=== PATIENT | female | born 2000 | race Caucasian/White ===

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

== ENCOUNTER 2022-03-16 23:21 | Emergency (ER) | payer BC, MEDICAID ==
[~2022-03-16] VITALS: Ht 168 cm; Wt 82.0 kg
[~2022-03-16 23:21] MED LIST changes: +SERT-412 PO; -SERT25TA5 PO
[2022-03-16] MEDS ORDERED: diphenhydrAMINE 50 MG/ML INJ (BENADRYL) IVP ONE (23:30)
[2022-03-16] MEDS ORDERED: methylPREDNISolone 125 MG (Solu-MEDROL) VIAL IVP ONE (23:30)
--- NOTE | 2022-03-16 23:31 | ED EENT ---
History of Present Illness General Chief Complaint: Oral/Throat Problems Stated Complaint: TONGUE SWOLLEN Source: patient Exam Limitations: no limitations History of Present Illness Date Seen by Provider: Mar 16, 2022 Time Seen by Provider: 23:26 Initial Comments 22-year-old female who is otherwise healthy presents to the emergency department today for perceived tongue swelling. Symptoms started this morning. Stated symptoms include sore throat. She also notes a change in her voice. No fevers or chills. She was fine prior to the onset of her current symptoms. She has n ot tried anything for symptoms. She is tolerating her saliva, liquids without difficulty. She has not tried to eat. No new medications or exposures. Allergies and Home Medications Allergies Coded Allergies: Penicillins (Unverified Allergy, Unknown, 05/11/15) Patient Home Medication List Home Medication List Reviewed: Yes Discontinued Medications Hydroxyzine Pamoate (Hydroxyzine Pamoate) 50 Mg Capsule, (Reported) Discontinued Reason: No Longer Taking Entered as Reported by: LYNDSEY HICKEY on 02/19/18335 Last Action: Discontinued Lurasidone HCl (Latuda) 20 Mg Tablet, (Reported) Discontinued Reason: No Longer Taking Entered as Reported by: LYNDSEY HICKEY on 02/19/18335 Last Action: Discontinued Naltrexone HCl (Naltrexone HCl) 50 Mg Tablet, (Reported) Discontinued Reason: No Longer Taking Entered as Reported by: LYNDSEY HICKEY on 02/19/18335 Last Action: Discontinued Nifedipine (Nifedipine) 10 Mg Capsule, (Reported) Discontinued Reason: No Longer Taking Entered as Reported by: LYNDSEY HICKEY on 02/19/18335 Last Action: Discontinued Oxcarbazepine (Oxcarbazepine) 150 Mg Tablet, (Reported) Discontinued Reason: No Longer Taking Entered as Reported by: LYNDSEY HICKEY on 02/19/18335 Last Action: Discontinued Review of Systems Review of Systems Constitutional: no symptoms reported Eyes: No Symptoms Reported Ears: No Symptoms Reported Nose: no symptoms reported Mouth: swelling Throat: pain, muffled Respiratory: no symptoms reported Cardiovascular: no symptoms reported Gastrointestinal: no symptoms reported Musculoskeletal: no symptoms reported Skin: no symptoms reported Neurological: No Symptoms Reported Hematologic/Lymphatic: No Symptoms Reported Immunological/Allergic: no symptoms reported Past Jjupbng-Kmnmgx-Tzoyno Hx Patient Social History Tobacco Use?: No Use of E-Cig and/or Vaping dev: No Substance use?: No Alcohol Use?: No Immunizations Up To Date Tetanus Booster (TDap): Less than 5yrs PED Vaccines UTD: Yes Seasonal Allergies Seasonal Allergies: No Past Medical History Surgeries: Yes Adenoidectomy, Tonsillectomy Respiratory: Yes Asthma Cardiac: No Neurological: No Reproductive Disorders: No Female Reproductive Disorders: Denies Genitourinary: No Gastrointestinal: No Musculoskeletal: No Endocrine: No HEENT: No Cancer: No Psychosocial: Yes ("CUTTER" ) Anxiety, Suicide Attempts, Bipolar, Schizophrenia, Depression Integumentary: Yes Eczema Blood Disorders: No Family Medical History Reviewed Nursing Family Hx Cardiovascular disease GPA, Onset:Unknown Diabetes mellitus 19 FATHER, Onset:Unknown GPA, Onset:Unknown Headache disorder 19 MOTHER, Onset:Unknown Hypertension 19 FATHER, Onset:Unknown No Pertinent Family Hx, Psychiatric Problems Physical Exam Vital Signs Vital Signs - First Documented 03/16/22 23:26 Temp 37.7 Pulse 110 Resp 16 B/P (MAP) 149/98 (115) Pulse Ox 99 O2 Delivery Room Air Height, Weight, BMI Height: 5'6.00" Weight: 180lbs. 0oz. 81.871419sl; 28.12 BMI Method:Stated General Appearance: WD/WN, no apparent distress Eyes: bilateral eye normal inspection, bilateral eye PERRL, bilateral eye EOMI Ears: bilateral ear auricle normal, bilateral ear canal normal, bilateral ear TM normal Nose: normal inspection Mouth/Throat: normal mouth inspection, pharynx normal, voice changes (Hot potato voice), other (Uvula is midline. There is no erythema. No lingular or palatal swelling.) Neck: non-tender, full range of motion, supple, normal inspection Cardiovascular: regular rate, rhythm, no edema, no gallop, no JVD, no murmur Respiratory: chest non-tender, lungs clear, normal breath sounds, no respiratory distress, no accessory muscle use Neurologic/Psychiatric: alert, normal mood/affect, oriented x 3 Skin: normal color, warm/dry Procedures/Interventions Suture Size: 4-0 Progress/Results/Core Measures Results/Orders Lab Results Laboratory Tests Test 03/16/22 23:30 03/16/22 23:39 Range/Units White Blood Count 8.2 4.3-11.0 10^3/uL Red Blood Count 4.87 3.80-5.11 10^6/uL Hemoglobin 13.8 11.5-16.0 g/dL Hematocrit 43 35-52 % Mean Corpuscular Volume 88 80-99 fL Mean Corpuscular Hemoglobin 28 25-34 pg Mean Corpuscular Hemoglobin Concent 32 32-36 g/dL Red Cell Distribution Width 12.5 10.0-14.5 % Platelet Count 369 130-400 10^3/uL Mean Platelet Volume 11.0 9.0-12.2 fL Immature Granulocyte % (Auto) 0 % Neutrophils (%) (Auto) 65 42-75 % Lymphocytes (%) (Auto) 24 12-44 % Monocytes (%) (Auto) 10 0-12 % Eosinophils (%) (Auto) 1 0-10 % Basophils (%) (Auto) 1 0-10 % Neutrophils # (Auto) 5.3 1.8-7.8 10^3/uL Lymphocytes # (Auto) 1.9 1.0-4.0 10^3/uL Monocytes # (Auto) 0.8 0.0-1.0 10^3/uL Eosinophils # (Auto) 0.0 0.0-0.3 10^3/uL Basophils # (Auto) 0.1 0.0-0.1 10^3/uL Immature Granulocyte # (Auto) 0.0 0.0-0.1 10^3/uL Sodium Level 141 135-145 MMOL/L Potassium Level 4.1 3.6-5.0 MMOL/L Chloride Level 108 H 98-107 MMOL/L Carbon Dioxide Level 22 21-32 MMOL/L Anion Gap 11 5-14 MMOL/L Blood Urea Nitrogen 14 7-18 MG/DL Creatinine 0.85 0.60-1.30 MG/DL Estimat Glomerular Filtration Rate 100 BUN/Creatinine Ratio 16 Glucose Level 72 70-105 MG/DL Calcium Level 9.2 8.5-10.1 MG/DL Serum Test, Qualitative NEGATIVE NEGATIVE Group A Streptococcus Screen NEGATIVE NEGATIVE My Orders Orders - DEONDREJACI DO Ct Neck (Soft Tissue) W (03/16/22 23:29) Cbc With Automated Diff (03/16/22 23:29) Basic Metabolic Panel (03/16/22 23:29) Hcg,Qualitative Serum (03/16/22 23:29) Diphenhydramine Injection (Benadryl Inje (03/16/22 23:30) Methylprednisolone Sod Succ (Solu-Medrol (03/16/22 23:30) Rapid Strep A Screen (03/16/22 23:31) Iohexol Injection (Omnipaque 350 Mg/Ml 1 (03/17/22 00:30) Received Contrast (Hold Metformin- Contr (03/17/22 00:30) Ns (Ivpb) (Sodium Chloride 0.9% Ivpb Bag (03/17/22 00:30) Medications Given in ED Current Medications Medications Dose Ordered Sig/Diana Route Start Time Stop Time Status Last Admin Dose Admin Diphenhydramine HCl 50 mg ONCE ONCE IVP 03/16/22 23:30 03/16/22 23:31 DC 03/16/22 23:37 50 MG Iohexol 100 ml ONCE ONCE IV 03/17/22 00:30 03/17/22 00:31 DC 03/17/22 00:28 75 ML Methylprednisolone Sodium Succinate 125 mg ONCE ONCE IVP 03/16/22 23:30 03/16/22 23:31 DC 03/16/22 23:37 125 MG Sodium Chloride 100 ml ONCE ONCE IV 03/17/22 00:30 03/17/22 00:31 DC 03/17/22 00:28 80 ML Vital Signs/I&O 03/16/22 23:26 Temp 37.7 Pulse 110 Resp 16 B/P (MAP) 149/98 (115) Pulse Ox 99 O2 Delivery Room Air Departure Communication (Admissions) Patient is hemodynamically stable. She did appear to have a hot potato voice however I observed no swelling on exam whatsoever. There is no erythema of the oropharynx. The tongue is normal uvula is midline and the tonsillar pillars are normal. CT scan obtained to rule out retropharyngeal or other abscess. This is negative. Discharged home with supportive care. She has no evidence for airway obstruction, esophageal obstruction, tolerating her secretions with normal vital signs. She is nontoxic. Impression Primary Impression: Pharyngitis Qualified Codes: J02.9 - Acute pharyngitis, unspecified Disposition: HOME, SELF-CARE Condition: Stable Departure-Patient Inst. Referrals: NO,LOCAL PHYSICIAN (PCP/Family) Primary Care Physician Patient Instructions: Sore Throat, Adult ED Add. Discharge Instructions: Use salt water gargles, Motrin and Tylenol as needed for discomfort. Return to the emergency department for any severe concerns. Your CT scan shows no linda dence of swelling to include your tongue, posterior oropharynx or deeper in your throat. All discharge instructions reviewed with patient and/or family. Voiced understanding. JACI MENDOSA DO Mar 16, 2022 23:31
[2022-03-16 23:45] LABS: BASOPHILS # (AUTO) 0.1 10^3/uL (0.0-0.1); BASOPHILS % (AUTO) 1 % (0-10); EOSINOPHILS % (AUTO) 1 % (0-10); HEMATOCRIT 43 % (35-52); HEMOGLOBIN 13.8 g/dL (11.5-16.0); LYMPHOCYTES # (AUTO) 1.9 10^3/uL (1.0-4.0); LYMPHOCYTES % (AUTO) 24 % (12-44); MEAN CORPUSCULAR HEMOGLOBIN 28 pg (25-34); MEAN CORPUSCULAR HGB CONC 32 g/dL (32-36); MEAN CORPUSCULAR VOLUME 88 fL (80-99); MONOCYTES # (AUTO) 0.8 10^3/uL (0.0-1.0); MONOCYTES % (AUTO) 10 % (0-12); NEUTROPHILS # (AUTO) 5.3 10^3/uL (1.8-7.8); NEUTROPHILS % (AUTO) 65 % (42-75); PLATELET COUNT 369 10^3/uL (130-400); WHITE BLOOD COUNT 8.2 10^3/uL (4.3-11.0)
[2022-03-16 23:54] LABS: POTASSIUM 4.1 MMOL/L (3.6-5.0)
[2022-03-16 23:55] LABS: CALCIUM 9.2 MG/DL (8.5-10.1)
[2022-03-17] LABS: CREATININE SERUM 0.85 MG/DL (0.60-1.30)
[2022-03-17] MEDS ORDERED: IOHEXOL 350 MG/ML 100 ML (OMNIPAQUE 350) VIAL IV ONE (00:30)
[2022-03-17] MEDS ORDERED: HOLD METFORMIN - RECEIVED CONTRAST 20 ML VIAL IV SCH (00:30)
[2022-03-17] MEDS ORDERED: NS 100 ML (IVPB) BAG IV ONE (00:30)
[2022-03-17 00:49] VITALS: BP 107/74
--- NOTE | 2022-03-17 08:26 | Diagnostic Imaging Report ---
PROCEDURE: CT neck soft tissue with contrast. TECHNIQUE: Multiple contiguous axial images were obtained through the neck after the administration of contrast. Auto Exposure Controls were utilized during the CT exam to meet ALARA standards for radiation dose reduction. INDICATION: Tongue and neck swelling, voice change COMPARISON: None available. FINDINGS: The orbits are unremarkable. No intra-cranial midline shift within the [id number]. The parapharyngeal fat is symmetric and well-maintained. The muscles of mastication are unremarkable. The salivary glands are unremarkable. The thyroid gland is unremarkable. Fossa of Rosenmuller are symmetric. No focal fluid collection. The epiglottis and aryepiglottic folds are unremarkable. Piriform sinuses are symmetric. The airway is patent. The true and false vocal cords appear unremarkable. No apical pneumothorax. Visualized upper lungs are clear. Mildly prominent submental lymph nodes bilaterally. No acute osseous abnormality. No temporomandibular joint dislocation. Tiny mucous retention cyst in bilateral maxillary sinuses. No air-fluid level within the maxillary sinuses. IMPRESSION: Mildly enlarged submental lymph nodes. Otherwise, unremarkable examination without acute abnormality. Agree with preliminary interpretation. Dictated by: Dictated on workstation # [id number]
== END 2022-03-17 00:51 | disposition home or self-care (01) ==
LOC: EDUNIT# 23:21 → ER 23:24
DX: J02.9 Acute pharyngitis, unspecified (principal); Z90.89 Acquired absence of other organs
CPT/HCPCS: 36415; 70491; 80048; 84703; 85025; 87430